=== PATIENT | female | born 1990 | race Caucasian/White ===

== ENCOUNTER → 2022-08-18 | Outpatient (CLI) | payer OTHER ==
[2022-08-18 13:10] VITALS: BP 142/94; PULSE 78; TEMP 97.4; BMI 60.9
--- NOTE | 2022-08-18 13:34 | P.HPBAR ---
Bariatric H&P - History & Physicial H&P Date: 08/18/22 History & Physicial: Visit/CC: new patient Patient initial contact: Initial weight: Initial weight in pounds: Height: 5 ft 6 in Initial BMI: Last weight: Current weight: 171.276 kg Current weight in pounds: 377.60 Current BMI: 60.9 [place] body weight (based on NIH guidelines): 58.967 kg Excess body weight loss: The patient is a 31 year-old F who presents for Bariatric Assessment. She is looking into the sleeve. She has troubles with weight loss. She has tried metformin got PCOS, going to the gym for 2 years. She has cut out pop. She misses breakfast lunch and eats dinner and snacks. The entire family are morbidly obese as well. Her highest is at present. She has lost up to 3x to 1x for clothing. She has not snored. She has heartburn. SHe denies back pain. No hip pain. She has knee pain, both. No ankle pain. She has heel pain. Her father had vericose veins. Grandmother had blood clots. She has uterine cancer but not esophageal or stomach cancer. No blood in stools. She has troubles with eating eggs and milk that causes abdominal pain. She has her gallbladder and has her appendix. She had . She is exposed to second hand smoke. Past Medical History Additional Past Medical History / Comment(s): hx. bronchiolitis History of Any Multi-Drug Resistant Organisms: None Reported Past Surgical History: Section Past Anesthesia/Blood Transfusion Reactions: No Reported Reaction Past Psychological History: Anxiety Additional Psychological History / Comment(s): hx. depression Smoking Status: Never smoker Past Alcohol Use History: None Reported Past Drug Use History: None Reported Surgical - Exam Vital Signs Temp Pulse BP 97.4 F L 78 142/94 08/18/22 13:05 08/18/22 13:05 08/18/22 13:05 Bariatric Checklist Checklist: Plan: Checklist: EGD: 1. Hiatal hernia: 2. H. Pylori: HgbA1c: Vitamin D: Smoking: Primary care physician referral: Dr. Griffin Psychiatry clearance: Cardiology clearance: Sleep study: Diet journal: VTE risk score: VTE risk level: Rehab needs at discharge:
[2022-08-18 16:52] LABS: Partial Thromboplastin Time 23.9 sec (22.0-30.0); Prothrombin Time 10.3 sec (9.0-12.0)
[2022-08-18 19:52] LABS: HCT 45.3 % (37.2-46.3); MCH 26.9 pg (27.0-32.0); MCHC 33.1 g/dL (32.0-37.0); MCV 81.2 fL (80.0-97.0); Mean Platelet Volume 11.8 fL (9.5-12.2); NRBC Per 100 WBC 0 /100 WBCS (0.0-0.0); Platelet Count 278 X 10*3/uL (140-440); RBC 5.58 X 10*6/uL (4.10-5.20); RDW 13.2 % (11.5-14.5); WBC 6.31 X 10*3/uL (4.50-10.00)
[2022-08-18 21:04] LABS: % Iron Saturation 15.53 (12.00-45.00); Total Iron Binding Capacity 482 ug/dL (228-460)
[2022-08-18 21:05] LABS: ALT 63 U/L (8-44); AST 65 U/L (13-35); African American GFR (CKD) 122.5 (60.0-200.0); Albumin 4.6 g/dL (3.8-4.9); Albumin/Globulin Ratio 1.51 (1.60-3.17); Alkaline Phosphatase 88 U/L (41-126); BUN/Creat Ratio 13.12 Ratio (12.00-20.00); Calcium 10.5 mg/dL (8.7-10.3); Carbon Dioxide 27.3 mmol/L (20.0-27.5); Chloride 101 mmol/L (96-109); Ferritin 56.6 ng/mL (10.0-291.0); Glucose 136 mg/dL (70-110); Iron 75 ug/dL (50-170); Magnesium 1.8 mg/dL (1.5-2.4); Non-African American GFR(CKD) 105.7 (60.0-200.0); Phosphorus 3.5 mg/dL (2.4-5.1); Potassium 4.4 mmol/L (3.5-5.5); Sodium 141 mmol/L (135-145); Total Protein 7.6 g/dL (6.2-8.2)
[2022-08-18 21:22] LABS: Chol/HDL Ratio 3.61 Ratio; LDL Cholesterol,Calculated 92.7 mg/dL (0.0-131.0); Prealbumin 24.4 mg/dL (18.0-42.0)
[2022-08-19 14:14] LABS: Zinc, Serum 90 ug/dL (60-130)
[2022-08-20 07:52] LABS: Vit B1(Thiamine) 63 ug/L (38-122)
[2022-08-20 09:06] LABS: Vitamin A 57 ug/dL (38-106)
== END ==
LOC: EDBD 12:38 → BARWHC3 12:38
PROVIDERS: ATTEND Surgery Plastic and Reconstructive Surgery
DX: Z51.81 Encounter for therapeutic drug level monitoring (principal); E66.01 Morbid (severe) obesity due to excess calories; E89.1 Postprocedural hypoinsulinemia; N19 Unspecified kidney failure; T56.894A Toxic effect of other metals, undetermined, initial encounter; D50.8 Other iron deficiency anemias; E44.0 Moderate protein-calorie malnutrition; E45 Retarded development following protein-calorie malnutrition; E55.9 Vitamin D deficiency, unspecified; K74.1 Hepatic sclerosis; Z88.0 Allergy status to penicillin; Z68.44 Body mass index [BMI] 60.0-69.9, adult
CPT/HCPCS: 84255; 84134; 84425; 80061; 80053; 82607; 82728; 82525; 82746; 83540; 83550; 83735; 84100; 84443; 84590; 84630; 85027; 85610; 85730; 82306; 83970; 83036; 80307; 93005; G0480; G0482; G0463; 80323; 99202

== ENCOUNTER → 2022-09-27 | Outpatient (CLI) | payer OTHER ==
--- NOTE | 2022-09-27 07:38 | US ---
EXAMINATION TYPE: US gallbladder DATE OF EXAM: 09/27/2022 COMPARISON: NONE CLINICAL INDICATION: Female, 32 years old with history of R10.11 RUQ ABD PAIN; Pt. receiving weight l oss surgery soon and physician wanted to ensure GB did not have pathology TECHNIQUE: Multiple sonographic images of the right upper quadrant are obtained. FINDINGS: EXAM MEASUREMENTS: Liver Length: 22.7 cm Gallbladder Wall: 0.21 cm CBD: 0.47 cm Right Kidney: 11.9x5.6x6.2 cm TREE TRIMMING LINE TECHNICIAN NOTES: Pancreas: Obscured by bowel gas Liver: Enlarged, Increased attenuation Gallbladder: wnl Evidence for sonographic Serrano's sign: No CBD: wnl Right Kidney: No hydronephrosis or masses seen Exam limited due to increased attenuation, large body habitus and bowel gas The pancreas is not visualized due to overlying bowel gas. Liver is enlarged with increased diffuse a ttenuation. This limits evaluation for masses. No gross evidence of mass within these limitations. Ga llbladder is within normal limits without evidence of cholelithiasis, wall thickening, or pericholecy stic fluid. Per jig builder, negative sonographic Serrano sign. Common bile duct is within normal limi ts. Right kidney demonstrates no evidence of hydronephrosis, cholelithiasis, or solid mass. IMPRESSION: Exam limited due to increased attenuation, large body habitus and bowel gas 1. No ultrasound evidence for an acute process. 2. No cholelithiasis. 3. Hepatic steatosis.
== END | disposition home or self-care (01) ==
LOC: RADUSWWP 06:36
PROVIDERS: ATTEND Surgery Plastic and Reconstructive Surgery
DX: K76.0 Fatty (change of) liver, not elsewhere classified (principal)
CPT/HCPCS: 76705